=== PATIENT | female | born 1945 | race Caucasian/White ===

== ENCOUNTER 2016-11-15 07:07 | Emergency (ER) | payer OTHER, BC ==
[~2016-11-15] VITALS: Ht 160 cm; Wt 90.9 kg
[~2016-11-15 07:07] MED LIST: ASPIR-LOW81 MG PO; ASPIR-TRIN325 M1 PO; ASPIRIN BUFFER325 MG PO; CLOPIDOGREL75 MG PO; CRESTOR40 MG PO; CUTIVATE 0.005%60 GM TP; DOXYCYCLINE HY100 MG PO; FLEXERIL10 MG PO; FLUTICASONE TP; HYDROCHLOROTHIA25 MG PO; KRILL OIL500 MG PO; LOTEMAX5 ML BOTH EYES; MAVIK4 MG PO; NITROSTAT0.4 MG SL; TRANDOLAPRIL4 MG PO; VISINE A.C300 DROP/1 BOTH EYES; VITAMIN D2000 INTUN PO; VITAMIN D32000 UNI1 PO; ZANAFLEX4 MG PO; ZYRTEC10 M3 PO
[2016-11-15] MEDS ORDERED: PREDNISONE20 MG PO (08:45)
[2016-11-15] MEDS ORDERED: NAPROSYN500 MG PO (08:45)
[2016-11-15] MEDS ORDERED: LIDODERM 5% P1 PATCH TD (08:45)
[2016-11-15] MEDS ORDERED: VALIUM2 MG PO (08:45)
[2016-11-15 08:51] VITALS: BP 126/84
== END 2016-11-15 08:59 | disposition home or self-care (01) ==
LOC: EME 07:07
DX: M54.41 Lumbago with sciatica, right side (principal); I25.2 Old myocardial infarction; E78.5 Hyperlipidemia, unspecified; I10 Essential (primary) hypertension; Z87.891 Personal history of nicotine dependence; Z90.49 Acquired absence of other specified parts of digestive tract
CPT/HCPCS: 72131; 99281; 99284; J1885